=== PATIENT | female | born 1945 | race Caucasian/White ===

== ENCOUNTER → 2017-06-09 | Outpatient (CLI) | payer OTHER, MEDICARE ==
[~2017-06-09] MED LIST: ALAVERT10 M1 PO; AYR SALINE NASA14 GM; CITRACAL-VIT D1 EACH PO; CLARITIN10 MG PO; DULERA 100 MCG/13 GM INH; FLONASE 0.05%50 MCG NASAL; HYDROCODONE-APA1 TA1 PO; LIDODERM 5%1 PATC1 TRANSDERM; LIORESAL 10 MG10 MG PO; MUCINEX TA600 MG/TA2 PO; NEILMED SINUS R1 KIT; NORCO 5-325 TA1 EACH PO; PREVACID15 MG PO; PROVERA2.5 MG PO; TRIAMTERENE-HC1 EAC3 PO; VAGIFEM10 MCG VAG; VENTOLIN HFA 1818 GM INH; VITAMIN D1000 UNI1 PO; VITAMIN D3; VITAMINC500 PO; WOMEN'S 50+ DA1 EACH PO; ZINC50 M1 PO
== END ==
LOC: RAD 11:18
DX: Z12.31 Encounter for screening mammogram for malignant neoplasm of breast (principal)

== ENCOUNTER → 2017-08-07 | Outpatient (CLI) | payer OTHER, MEDICARE | LOC: RAD 13:22 | DX: M47.896 Other spondylosis, lumbar region (principal) ==

== ENCOUNTER → 2018-08-24 | Outpatient (CLI) | payer OTHER, MEDICARE | LOC: RAD 01:52 | DX: Z12.31 Encounter for screening mammogram for malignant neoplasm of breast (principal) ==

== ENCOUNTER → 2019-11-08 | Outpatient (CLI) | payer OTHER, MEDICARE | LOC: RAD 11-01 10:50 | DX: Z12.31 Encounter for screening mammogram for malignant neoplasm of breast (principal) ==

== ENCOUNTER → 2021-08-20 | Outpatient (CLI) | payer OTHER, MEDICARE | LOC: HYPER 14:23 | PROVIDERS: ATTEND Emergency Medicine | DX: S81.811A Laceration without foreign body, right lower leg, initial encounter (principal); I83.018 Varicose veins of right lower extremity with ulcer other part of lower leg; L97.812 Non-pressure chronic ulcer of other part of right lower leg with fat layer exposed; I83.028 Varicose veins of left lower extremity with ulcer other part of lower leg; L97.822 Non-pressure chronic ulcer of other part of left lower leg with fat layer exposed; R20.9 Unspecified disturbances of skin sensation; M79.89 Other specified soft tissue disorders; R60.0 Localized edema; L30.9 Dermatitis, unspecified; Z79.899 Other long term (current) drug therapy; Z96.653 Presence of artificial knee joint, bilateral; Z98.1 Arthrodesis status; Z90.89 Acquired absence of other organs; Z87.891 Personal history of nicotine dependence; V49.88XA Car occupant (driver) (passenger) injured in other specified transport accidents, initial encounter; Y93.89 Activity, other specified; Y92.89 Other specified places as the place of occurrence of the external cause; Y99.8 Other external cause status ==

== ENCOUNTER → 2021-08-28 | Outpatient (CLI) | payer OTHER, MEDICARE | LOC: HYPER 11:51 | PROVIDERS: ATTEND Emergency Medicine | DX: S81.811D Laceration without foreign body, right lower leg, subsequent encounter (principal); I83.018 Varicose veins of right lower extremity with ulcer other part of lower leg; L97.812 Non-pressure chronic ulcer of other part of right lower leg with fat layer exposed; I83.028 Varicose veins of left lower extremity with ulcer other part of lower leg; L97.822 Non-pressure chronic ulcer of other part of left lower leg with fat layer exposed; L98.9 Disorder of the skin and subcutaneous tissue, unspecified; L30.9 Dermatitis, unspecified; R20.9 Unspecified disturbances of skin sensation; M79.89 Other specified soft tissue disorders; R60.0 Localized edema; Z96.653 Presence of artificial knee joint, bilateral; Z98.1 Arthrodesis status; Z90.89 Acquired absence of other organs; Z87.891 Personal history of nicotine dependence; V49.88XD Car occupant (driver) (passenger) injured in other specified transport accidents, subsequent encounter ==

== ENCOUNTER → 2021-09-07 | Outpatient (CLI) | payer OTHER, MEDICARE | END | disposition home or self-care (01) | LOC: BC 09-06 17:26 | PROVIDERS: ATTEND Obstetrics & Gynecology | DX: Z12.31 Encounter for screening mammogram for malignant neoplasm of breast (principal) ==